=== PATIENT | male | born 2005 | race Caucasian/White ===

== ENCOUNTER 2024-04-23 06:56 | Emergency (ER) | payer MEDICAID ==
[~2024-04-23] VITALS: Ht 188 cm; Wt 88.5 kg
[2024-04-23 06:58] VITALS: BP 139/99; PULSE 102; RESP 18; TEMP 97.6; O2SAT 99
== END 2024-04-23 07:13 ==
LOC: MED 06:56
DX: Z02.89 Encounter for other administrative examinations (principal); R03.0 Elevated blood-pressure reading, without diagnosis of hypertension; Y32.XXXA Crashing of motor vehicle, undetermined intent, initial encounter; Y93.89 Activity, other specified; Y92.488 Other paved roadways as the place of occurrence of the external cause; Y99.8 Other external cause status
CPT/HCPCS: 99283